=== PATIENT | female | born 1980 | race Caucasian/White ===

== ENCOUNTER 2018-10-15 10:34 | Emergency (ER) | payer OTHER ==
[2018-10-15 10:41] VITALS: BP 121/64
--- NOTE | 2018-10-15 12:10 | ED Physician Documentation ---
PD HPI PED ILLNESS - Stated complaint Stated Complaint: FLU LIKE SX/THROAT PX - Chief complaint Chief Complaint: Heent - History obtained from History obtained from: Patient - History of Present Illness Timing - onset: Other (3 days of sore throat and fever, daughter also sick with similar illness. No comorbidities and no possibility of .) Review of Systems Constitutional: reports: Fever, Chills Nose: denies: Rhinorrhea / runny nose Throat: reports: Sore throat GI: denies: Abdominal Pain, Nausea PD PAST MEDICAL HISTORY - Past Medical History Past Medical History: No - Past Surgical History Past Surgical History: Yes - Present Medications Home Medications: Ambulatory Orders Medication Instructions Recorded Confirmed Penicillin V Potassium 500 mg PO Q6HR #40 tablet 10/15/18 - Allergies Allergies/Adverse Reactions: Allergies Allergy/AdvReac Type Severity Reaction Status Date / Time No Known Drug Allergies Allergy Verified 10/15/18 10:41 - Social History Does the pt smoke?: No Smoking Status: Never smoker Does the pt drink ETOH?: No - Immunizations Immunizations are current?: Yes PD ED PE NORMAL - Vitals Vital signs reviewed: Yes - General General: Alert and oriented X 3, No acute distress - HEENT HEENT: Other (Red tonsils without swelling or exudates) - Neck Neck: Supple, no meningeal sign, No adenopathy - Neuro Neuro: Alert and oriented X 3, Normal speech - Psych Psych: Normal mood, Normal affect Results - Vitals Vitals: Vital Signs - 24 hr 10/15/18 10:39 Heart Rate 88 Respiratory 18 Rate Blood Pressure 121/64 O2 Saturation 99 Oxygen O2 Source Room air - Labs Labs: Laboratory Tests 10/15/18 10:57 Group A Strep Rapid POSITIVE H Departure - Departure Disposition: Home, Self Care Clinical Impression: Strep pharyngitis Condition: Good Record reviewed to determine appropriate education?: Yes Instructions: ED Strep Pharyngitis Conf Prescriptions: Penicillin V Potassium 500 mg PO Q6HR #40 tablet
== END 2018-10-15 12:35 | disposition home or self-care (01) ==
LOC: ED 10:34
DX: J02.0 Streptococcal pharyngitis (principal)
CPT/HCPCS: 87430; 99283